=== PATIENT | female | born 1940 | race Native Hawaiian/Other Pacific Islander ===

== ENCOUNTER 2017-03-16 08:34 | Outpatient (CLI) | payer OTHER ==
[~2017-03-16 08:34] MED LIST: AMLO5TAB PO; HYDR-3182 PO; LEVO0.1519 PO; SIMV40TA57 PO; TENORETIC PO; ZESTRIL40 MG PO
== END 2017-03-16 19:59 | disposition home or self-care (01) ==
LOC: MAMMO 08:34
DX: Z12.31 Encounter for screening mammogram for malignant neoplasm of breast (principal)
CPT/HCPCS: G0202-TC

== ENCOUNTER 2017-07-05 09:02 | Outpatient (CLI) | payer OTHER | END 2017-07-05 21:13 | disposition home or self-care (01) | LOC: RAD 09:02 | DX: M54.15 Radiculopathy, thoracolumbar region (principal) ==

== ENCOUNTER 2017-10-21 20:45 | Emergency (ER) | payer OTHER ==
[~2017-10-21] VITALS: Ht 160 cm; Wt 81.6 kg
[2017-10-21 21:29] LABS: PLATELET COUNT 345 K/uL (152-353)
[2017-10-21 22:18] VITALS: BP 181/88; TEMP 98
== END 2017-10-21 22:19 | disposition home or self-care (01) ==
LOC: ED 20:45
DX: J06.9 Acute upper respiratory infection, unspecified (principal); K59.09 Other constipation; I44.7 Left bundle-branch block, unspecified
CPT/HCPCS: 36415; 80053; 85027; 93005; 94664; 99283

== ENCOUNTER 2017-10-27 10:57 | Observation (INO) | payer OTHER ==
[~2017-10-27] VITALS: Ht 157.5 cm; Wt 87.3 kg
[2017-10-27 11:28] VITALS: BP 150/86; TEMP 97.8; Ht 157.5 cm; Wt 87.3 kg
[2017-10-27 13:44] LABS: PLATELET COUNT 297 K/uL (152-353)
[2017-10-27 16:00] VITALS: BP 100/46; TEMP 99.1
[2017-10-27 20:00] VITALS: BP 110/57; TEMP 98.7
[2017-10-28] VITALS: BP 100/48; TEMP 97.7
[2017-10-28 04:00] VITALS: BP 131/62; TEMP 97.8
[2017-10-28 08:00] VITALS: BP 129/46; TEMP 98.1
[2017-10-28 12:00] VITALS: BP 109/53; TEMP 98
[2017-10-28 16:00] VITALS: BP 176/68; TEMP 98.3
[2017-10-28 20:00] VITALS: BP 117/68; TEMP 98
[2017-10-29] VITALS: BP 121/56; TEMP 97.8
[2017-10-29 04:00] VITALS: BP 138/63; TEMP 98
[2017-10-29 06:47] LABS: PLATELET COUNT 227 K/uL (152-353)
[2017-10-29 06:56] LABS: POTASSIUM 3.8 mmol/L (3.6-5.2)
[2017-10-29 08:00] VITALS: BP 145/73; TEMP 97.8
[2017-10-29 12:00] VITALS: BP 107/55; TEMP 98.2
[2017-10-29 16:00] VITALS: BP 124/64; TEMP 98.4
[2017-10-29 20:00] VITALS: BP 152/71; TEMP 99.1
[2017-10-30] VITALS: BP 121/52; TEMP 98.1
[2017-10-30 04:00] VITALS: BP 146/51; TEMP 98
[2017-10-30 06:44] LABS: PLATELET COUNT 231 K/uL (152-353)
[2017-10-30 08:00] VITALS: BP 153/65; TEMP 98
[2017-10-30 09:02] LABS: POTASSIUM 4.2 mmol/L (3.6-5.2)
== END 2017-10-30 13:10 | disposition home or self-care (01) ==
LOC: MED/SURG 10:57
PROVIDERS: ADMIT Family Medicine
DX: J20.9 Acute bronchitis, unspecified (principal); J18.8 Other pneumonia, unspecified organism; R07.89 Other chest pain; R00.0 Tachycardia, unspecified; I44.7 Left bundle-branch block, unspecified; J43.9 Emphysema, unspecified
CPT/HCPCS: 36415; 80053; 82550; 83735; 84100; 84443; 84484; 85027; 87040; 87070; 87205; 87804; 93005; 94640; 94664; 94760; 96365; 96366; 96367; 96374; 96375; 99220; G0378; G0379; J1885; J2405

== ENCOUNTER 2018-02-21 13:29 | Outpatient (CLI) | payer OTHER ==
[~2018-02-21] VITALS: Ht 157.5 cm; Wt 80.7 kg
[2018-02-21 14:00] VITALS: BP 144/57; TEMP 98.7
[2018-02-21 16:07] VITALS: BP 141/58; TEMP 97.6
== END 2018-02-21 16:25 | disposition home or self-care (01) ==
LOC: INF 13:29
DX: E86.0 Dehydration (principal)
CPT/HCPCS: 96361; 96365; J0696

== ENCOUNTER 2018-12-28 07:43 | Outpatient (CLI) | payer OTHER | END 2018-12-28 20:05 | disposition home or self-care (01) | LOC: MAMMO 07:43 | DX: Z12.31 Encounter for screening mammogram for malignant neoplasm of breast (principal); Z12.39 Encounter for other screening for malignant neoplasm of breast ==

== ENCOUNTER 2019-01-03 05:50 | Outpatient (CLI) | payer OTHER ==
[2019-01-03] MEDS ORDERED: LEVO-T125 MCG PO (06:22)
[2019-01-03] MEDS ORDERED: CHLORTHALID25 MG PO (06:23)
[2019-01-03] MEDS ORDERED: HYDROCODONE BIT1 TA2 PO (15:24)
== END 2019-01-03 06:06 | disposition short-term general hospital (02) ==
LOC: AMB 05:50
DX: R11.2 Nausea with vomiting, unspecified (principal); R42 Dizziness and giddiness
CPT/HCPCS: A0425; A0427

== ENCOUNTER 2019-01-03 06:10 | Observation (INO) | payer OTHER ==
[~2019-01-03] VITALS: Ht 157.5 cm; Wt 82.6 kg
[2019-01-03] VITALS (11 sets, daily range): BP systolic 106–179; BP diastolic 48–87; TEMP 97.3–98.1; Ht 157.5 cm; Wt 82.6 kg
[2019-01-03] MEDS ORDERED: LEVO-T125 MCG PO (06:22)
[2019-01-03] MEDS ORDERED: CHLORTHALID25 MG PO (06:23)
[2019-01-03 06:39] LABS: PLATELET COUNT 208 K/uL (152-353)
[2019-01-03 06:50] LABS: POTASSIUM 4.1 mmol/L (3.6-5.2)
[2019-01-03] MEDS ORDERED: HYDROCODONE BIT1 TA2 PO (15:24)
[2019-01-04] VITALS: BP 144/60; TEMP 97.9
[2019-01-04 04:00] VITALS: BP 122/52; TEMP 97.8
[2019-01-04 08:00] VITALS: BP 108/57; TEMP 97.8
[2019-01-04 10:20] LABS: PLATELET COUNT 220 K/uL (152-353)
[2019-01-04 10:36] LABS: POTASSIUM 4.2 mmol/L (3.6-5.2)
== END 2019-01-04 12:55 | disposition home or self-care (01) ==
LOC: ED 06:10 → MED/SURG 09:17
PROVIDERS: Emergency Medicine; ADMIT Family Medicine
DX: H81.13 Benign paroxysmal vertigo, bilateral (principal); R11.2 Nausea with vomiting, unspecified; I10 Essential (primary) hypertension; G89.29 Other chronic pain; E03.8 Other specified hypothyroidism; R53.1 Weakness
CPT/HCPCS: 36415; 80053; 81000; 83880; 85027; 93005; 96365; 96374; 99220; 99284; G0378; J2405

== ENCOUNTER 2019-01-28 10:16 | Outpatient (CLI) | payer OTHER ==
[~2019-01-28 10:16] MED LIST changes: +CHLORTHALID25 MG PO; +HYDROCODONE BIT1 TA2 PO; +LEVO-T125 MCG PO
== END 2019-01-28 20:22 | disposition home or self-care (01) ==
LOC: RAD 10:16
DX: M25.521 Pain in right elbow (principal); M25.551 Pain in right hip

== ENCOUNTER 2019-07-23 10:38 | Outpatient (CLI) | payer OTHER | END 2019-07-23 20:18 | disposition home or self-care (01) | LOC: RAD 10:38 | DX: M25.572 Pain in left ankle and joints of left foot (principal) ==